=== PATIENT | male | born 1945 | race Caucasian/White ===

== ENCOUNTER 2022-03-14 09:26 | Outpatient (CLI) | payer MEDICARE | END 2022-03-14 09:27 | disposition home or self-care (01) | LOC: CSHMRI 09:26 | PROVIDERS: ATTEND Specialist | DX: M51.17 Intervertebral disc disorders with radiculopathy, lumbosacral region (principal); M47.816 Spondylosis without myelopathy or radiculopathy, lumbar region | CPT/HCPCS: 72148 ==